=== PATIENT | female | born 1950 | race Caucasian/White ===

== ENCOUNTER 2024-03-21 13:09 | Outpatient (CLI) | payer MEDICARE | END 2024-03-21 23:59 | disposition home or self-care (01) | LOC: RAD 13:09 | PROVIDERS: ATTEND Otolaryngology | DX: R13.14 Dysphagia, pharyngoesophageal phase (principal); R05.9 Cough, unspecified; Z79.899 Other long term (current) drug therapy | CPT/HCPCS: 74230 ==